=== PATIENT | female | born 1995 | race Caucasian/White ===

== ENCOUNTER 2016-04-13 21:50 | Emergency (ER) | payer MEDICAID, OTHER ==
[2016-04-13 22:12] VITALS: BP 123/82; PULSE 104; RESP 16; TEMP 99.1; O2SAT 95
[2016-04-13] MEDS ORDERED: CARBAMIDE PEROXIDE 15 ML BOTTLE RTEAR ONE (22:24)
[2016-04-13] MEDS ORDERED: IBUPROFEN 200 MG TAB PO ONE (22:25)
--- NOTE | 2016-04-13 22:59 | UCPHY ---
H & P Time Seen by Provider: 04/13/16 22:17 Patient Type: Established HPI/ROS: This patient complains of right ear pain. She has had issues with cerumen impaction before and she tried clearing ear with a Q-tip then had increased pain thereafter 8/10 achy pain. She also had increased pain after blowing her nose. She has had associated nasal congestion over the past few days. No other associated symptoms. ROS: No fevers. No drainage from the ear. No bleeding from the ear. No tinnitus. No left ear symptoms. 5 point ROS is otherwise negative Smoking Status: Unknown if ever smoked Physical Exam: Physical Exam Vital signs are normal. General: No acute distress HEENT: Nose: Clear discharge bilaterally. No sinus tenderness to percussion. Left ear: Clear external canal and TM right ear cerumen impaction. After cerumen impactions resolved-normal appearing external canal and clear tympanic membrane without evidence of rupture or infection Oropharynx: No erythema or exudates. No dysphonia. No drooling or stridor. Eyes: Pupils equal and react to light. Extraocular motions are intact. Lungs: No respiratory distress Cardiac: Brisk capillary refill intact throughout Skin: No rash or pallor. Neuro: Alert with no focal deficits noted. Constitutional: Initial Vital Signs Temperature (C) 37.3 C 04/13/16 21:55 Heart Rate 104 H 04/13/16 21:55 Respiratory Rate 16 04/13/16 21:55 Blood Pressure 123/82 H 04/13/16 21:55 O2 Sat (%) 95 04/13/16 21:55 O2 Delivery Mode Room Air Allergies/Adverse Reactions: No Known Allergies Allergy (Verified 04/13/16 22:07) Home Medications: Medication Instructions Recorded NK [No Known Home Meds] 04/13/16 Medical Decision Making ED Course/Re-evaluation: Debrox with irrigation by our nurse with removal of cerumen. Patient tolerated this well. - Data Points Medications Given: Discontinued Medications Carbamide Peroxide (Debrox) 5 drop RTEAR EDNOW ONE Stop: 04/13/16 22:25 Last Admin: 04/13/16 22:31 Dose: 5 drops Ibuprofen (Motrin) 600 mg PO EDNOW ONE Stop: 04/13/16 22:26 Last Admin: 04/13/16 22:45 Dose: 600 mg Departure - Departure Disposition: Home, Routine, Self-Care Clinical Impression: Cerumen impaction Qualifiers: Laterality: right Qualified Code(s): H61.21 - Impacted cerumen, right ear Condition: Good Instructions: Cerumen Impaction (ED) Additional Instructions: Diagnosis: Cerumen impaction Plan: Return for any significant ear pain. Ibuprofen Tylenol in the meantime. Referrals: NONE *PRIMARY CARE P,. [Primary Care Provider] - As per Instructions - PQRS PQRS Measurement: NA
== END 2016-04-13 23:10 | disposition home or self-care (01) ==
LOC: CED 21:50
PROC: 3E1B78Z Irrigation of Ear using Irrigating Substance, Via Natural or Artificial Opening (ICD-10-PCS; principal; 2016-04-13)
DX: H61.21 Impacted cerumen, right ear (principal)
CPT/HCPCS: 99214-PO; G0463-PO

== ENCOUNTER 2016-06-30 15:51 | Emergency (ER) | payer OTHER, MEDICAID ==
[2016-06-30 16:10] VITALS: RESP 16; TEMP 99.2; O2SAT 96
[2016-06-30] MEDS ORDERED: IBUPROFEN 600 MG TAB PO ONE (16:24)
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
[2016-06-30 17:16] VITALS: BP 110/76; PULSE 84
== END 2016-06-30 17:13 | disposition home or self-care (01) ==
LOC: CED 15:51
DX: S39.012A Strain of muscle, fascia and tendon of lower back, initial encounter (principal); S16.1XXA Strain of muscle, fascia and tendon at neck level, initial encounter; V49.49XA Driver injured in collision with other motor vehicles in traffic accident, initial encounter; Y92.410 Unspecified street and highway as the place of occurrence of the external cause; Y99.8 Other external cause status; Y93.89 Activity, other specified